=== PATIENT | male | born 1960 | race Caucasian/White ===

== ENCOUNTER 2018-01-18 00:08 | Emergency (ER) | payer MEDICARE, OTHER ==
[~2018-01-18] VITALS: Ht 188 cm; Wt 77.1 kg
[2018-01-18] MEDS ORDERED: Zantac150 MG PO (01:02)
[2018-01-18] MEDS ORDERED: Hair, Skin & N1 EACH PO (01:02)
[2018-01-18 01:55] LABS: BASOPHILS ABSOLUTE AUTO 0.09 K/mm3 (0.00-0.23); BASOPHILS PERCENT AUTO 1 % (0-2); EOSINOPHILS ABSOLUTE AUTO 0.09 K/mm3 (0.00-0.68); EOSINOPHILS PERCENT AUTO 1 % (0-6); Hematocrit 40.7 % (37.0-53.0); Hemoglobin 13.4 g/dL (13.5-17.5); IMMATURE GRAN ABSOLUTE AUTO 0.03 K/mm3 (0.00-0.10); IMMATURE GRAN PERCENT AUTO 0 % (0-1); LYMPHOCYTES PERCENT AUTO 21 % (21-46); MONOCYTES ABSOLUTE AUTO 1.16 K/mm3 (0.16-1.47); MONOCYTES PERCENT AUTO 9 % (4-13); Mean Corpuscular HGB 30.5 pg (26.0-34.0); Mean Corpuscular HGB Conc 32.9 g/dL (31.5-36.5); Mean Corpuscular Volume 93 fL (80-100); Mean Platelet Volume 10.4 fL (9.1-12.4); NEUTROPHILS ABSOLUTE AUTO 8.53 K/mm3 (1.96-9.15); NEUTROPHILS PERCENT AUTO 68 % (41-73); Platelet Count 192 K/mm3 (150-400); RDW Standard Deviation 47.6 fL (35.1-46.3)
[2018-01-18 02:13] LABS: Alanine Aminotransfer (ALT/SGP 35 U/L (12-78); Albumin, Blood 3.4 g/dL (3.4-5.0); Albumin/Globulin Ratio 0.9 (0.8-1.8); Alk Phos 85 U/L (50-136); Anion Gap 6 mmol/L (6-16); Aspartate Aminotrans (AST/SGOT 29 U/L (12-37); Bilirubin, Total 0.1 mg/dL (0.1-1.0); Blood Urea Nitrogen 14 mg/dL (8-24); CO2, Blood 27 mmol/L (21-32); Calcium, Blood 8.4 mg/dL (8.5-10.1); Chloride, Blood 110 mmol/L (98-108); Creatinine, Blood 0.83 mg/dL (0.60-1.20); Globulin, Blood 3.6 g/dL (2.2-4.0); Glomerular Filtration Rate >60 (60-); Glucose, Blood 139 mg/dL (70-99); Potassium, Blood 3.5 mmol/L (3.5-5.5); Sodium, Blood 143 mmol/L (136-145)
[2018-01-18 04:43] LABS: Source, Urine Clean Catch
[2018-01-18 04:56] LABS: Bilirubin, Urine Neg (Neg); Blood, Urine Neg (Neg); Glucose Qualitative, Urine Neg (Neg); Ketones, Urine Neg (Neg); Leukocyte Esterase, Urine Neg (Neg); Nitrite, Urine Neg (Neg); Protein, Urine Neg (Neg); Urobilinogen, Urine NORM (Normal); pH, Urine 6.5 (5.0-8.0)
[2018-01-18 05:02] LABS: Appearance, Urine Clear (Clear); Color, Urine Yellow (P-Yellow)
[2018-01-18] MEDS ORDERED: SUCR1 PO (14:19)
[2018-01-18] MEDS ORDERED: Bentyl10 MG PO (14:19)
[2018-01-18] MEDS ORDERED: ONDA4ODT MM (14:19)
== END 2018-01-18 05:22 | disposition home or self-care (01) ==
LOC: ER 00:08
PROVIDERS: Emergency Medicine
DX: R10.9 Unspecified abdominal pain (principal); Z91.030 Bee allergy status; Z79.899 Other long term (current) drug therapy; F17.200 Nicotine dependence, unspecified, uncomplicated
CPT/HCPCS: 74177; 80053; 81003; 83690; 85025; 96361; 96374; 96375; 99284-25; J2405; J3010; J7030; Q9967

== ENCOUNTER 2023-01-06 14:05 | Inpatient (IN) | payer OTHER ==
[~2023-01-06] VITALS: Ht 190.5 cm; Wt 64.4 kg
[~2023-01-06 14:05] MED LIST: Bentyl10 MG PO; DIVA250ER; GLUC500; Hair, Skin & N1 EACH PO; ONDA4ODT MM; SUCR1 PO; Zantac150 MG PO
[2023-01-06 14:41] LABS: BASOPHILS PERCENT AUTO 1 % (0-2); EOSINOPHILS ABSOLUTE AUTO 0.56 K/mm3 (0.00-0.68); EOSINOPHILS PERCENT AUTO 7 % (0-6); Hematocrit 40.1 % (37.0-53.0); Hemoglobin 13.4 g/dL (13.5-17.5); IMMATURE GRAN ABSOLUTE AUTO 0.02 K/mm3 (0.00-0.10); IMMATURE GRAN PERCENT AUTO 0 % (0-1); LYMPHOCYTES ABSOLUTE AUTO 2.75 K/mm3 (0.84-5.20); LYMPHOCYTES PERCENT AUTO 34 % (21-46); MONOCYTES ABSOLUTE AUTO 0.73 K/mm3 (0.16-1.47); MONOCYTES PERCENT AUTO 9 % (4-13); Mean Corpuscular HGB 29.8 pg (26.0-34.0); Mean Corpuscular HGB Conc 33.4 g/dL (31.5-36.5); Mean Corpuscular Volume 89 fL (80-100); Mean Platelet Volume 9.8 fL (9.1-12.4); NEUTROPHILS PERCENT AUTO 49 % (41-73); Platelet Count 249 K/mm3 (150-400); RDW Coefficient Variation 13.8 % (11.7-14.2); RDW Standard Deviation 45.5 fL (35.1-46.3); White Blood Cell Count 8.16 K/mm3 (4.00-11.30)
[2023-01-06 14:59] LABS: Albumin, Blood 3.1 g/dL (3.4-5.0); Albumin/Globulin Ratio 0.8 (0.8-1.8); Bilirubin, Total 0.2 mg/dL (0.1-1.0); Bun/Creatinine Ratio 16.3 (12.0-20.0); Calcium, Blood 8.4 mg/dL (8.5-10.1); Creatinine, Blood 0.61 mg/dL (0.60-1.20); Globulin, Blood 3.8 g/dL (2.2-4.0); Potassium, Blood 3.9 mmol/L (3.5-5.5); Total Protein, Blood 6.9 g/dL (6.4-8.2)
[2023-01-06] MEDS ORDERED: CARB100ER PO (15:29)
[2023-01-06] MEDS ORDERED: LEVE500 PO (15:29)
[2023-01-06 16:22] LABS: Source, Urine Clean Catch
[2023-01-06 16:32] LABS: Appearance, Urine Clear (Clear); Bilirubin, Urine Neg (Neg); Blood, Urine Neg (Neg); Color, Urine Yellow (P-Yellow); Glucose Qualitative, Urine Neg (Neg); Ketones, Urine Neg (Neg); Leukocyte Esterase, Urine Neg (Neg); Nitrite, Urine Neg (Neg); Protein, Urine Neg (Neg); Urobilinogen, Urine NORM (Normal)
[2023-01-06 22:41] VITALS: BP 117/82
--- NOTE | 2023-01-07 01:16 | NUR ---
ADMIT NOTE MR HEMPHILL WAS ADMITTED FROM THE ER AT 2205HRS. ORIENTATED TO HIMSELF, TO [facility], SAID THAT IT'S JANUARY 2015 AND GAVE A VAGUE RESAON FOR BEING HERE. HE HAD SOME REPETATIVE CONVERSATION BUT WAS ABLE TO ANSWER MOST QUESTIONS WELL AND APPROPRIATELY. HE SAID THAT HE SMOKES TOBACCO AND MJ. HE WAS EDUCATED RE IGNITION SOURCES AND RISK OF INJURY WHEN OXYGEN IN USE. HE DENIED HAVING ANY IGNITION SOURCES AND VERBALISED UNDERSTANDING. RISK REASSESSMENT ON NURSING ROUNDS. PT EDUCATED ON FALL RISK DUE TO FREQUENT FALLS AT HOME. BED ALARM ON AND RATIONALLE EXPLAINED TO PT. HE HAS USED THE CALL LIGHT AND HAS NOT TRIED TO GET UP BY HIMSELF. TELEMETRY PLACED - SR 60, NO CALLS FROM DOCTOR OF NATUROPATHIC MEDICINE. LEFT HAND WEAKNESS. 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 LEFT HAND SWOLLEN. C/O DISCOMFORT TO LEFT THUMB WHICH HE SAID HE SELF MEDICATES WITH MJ AT HOME. PT REPORTS WT LOSS OVER THE PAST 3 MONTHS AND IS UNDERWEIGHT. SCDS ON. IVF INFUSING. BED LOW, CALL LIGHT IN REACH.
--- NOTE | 2023-01-07 03:22 | NUR ---
DR [facility] CALLED FOR CONSULT. INFORMATION TAKEN AND TOLD INFORMATION WILL BE PASSED ON AT 0800HRS.
[2023-01-07 04:37] VITALS: BP 98/73
--- NOTE | 2023-01-07 04:51 | NUR ---
SHIFT SUMMARY PLEASE SEE 0116 ADMIT NOTE. MD HEMPHILL HAS RESTED IN BED AND APPEARED COMFORTABLE OVERNIGHT. VOIDED, CONTINENT OF URINE. NO CALLS FROM RECEPTIONIST SECRETARY. IVF INFUSING. BED LOW, CALL LIGHT IN REACH, BED ALARM ON.
[2023-01-07 06:19] LABS: Hematocrit 40.3 % (37.0-53.0); Hemoglobin 13.6 g/dL (13.5-17.5); Mean Corpuscular HGB 29.9 pg (26.0-34.0); Mean Corpuscular HGB Conc 33.7 g/dL (31.5-36.5); Mean Corpuscular Volume 89 fL (80-100); Mean Platelet Volume 10.2 fL (9.1-12.4); Platelet Count 247 K/mm3 (150-400); RDW Coefficient Variation 13.6 % (11.7-14.2); RDW Standard Deviation 44.1 fL (35.1-46.3); Red Blood Cell Count 4.55 M/mm3 (4.30-5.90); White Blood Cell Count 6.32 K/mm3 (4.00-11.30)
[2023-01-07 06:34] LABS: International Normalized Ratio 0.97; Prothrombin Time Results 10.2 Sec (9.7-11.5)
[2023-01-07 06:53] LABS: Bun/Creatinine Ratio 17.1 (12.0-20.0); Calcium, Blood 8.3 mg/dL (8.5-10.1); Creatinine, Blood 0.64 mg/dL (0.60-1.20); Potassium, Blood 4.8 mmol/L (3.5-5.5)
[2023-01-07 07:04] VITALS: BP 111/68
--- NOTE | 2023-01-07 09:00 | NUR ---
PT PLEASANT COOP A/O X3, KNOWS NAME , AGE, SISTER , NAME. KNOWS AT [facility]. NOT SURE ON YEAR. PRESIDENT. CURRENT EVENTS. FAMILY STATES PAST TBI AND PRESENTS MOSTLY AT BASELINE. H/R REG, NO MURMUR NOTED. PER TELE NSR AT 69. LUNGS CLEAR, RESP EASY, UNLABORED ON R.A. BT X4 LAST BM COUPLE DAYS PER PT. VIODS URINAL OR 1 ASST BATHROOM. NO NEW CONCERNS NOTED. BED IN LOW POSITION, CALL LITE IN REACH, CALLS APPROP
[2023-01-07 15:20] VITALS: BP 120/70
--- NOTE | 2023-01-07 17:24 | NUR ---
PT STATES FEELS SOME BETTER. GOT TO SEE FAMILY TODAY. STATES LEFT ARM STILL OVERLY WEAK AND ONLY GROSS MOVEMENT NOTED. DR ORDERED MORE TESTS. I VERIFIED CANCER DR WAS CALLED THIS AFT. NO NEW COCERNS NOTED. BED IN LOW POSITION, CALL LITE IN REACH, CALLS APPROP
[2023-01-07 19:47] VITALS: BP 112/60
[2023-01-08 04:34] VITALS: BP 104/70
[2023-01-08 07:06] VITALS: BP 103/72
--- NOTE | 2023-01-08 14:57 | NUR ---
ASSUMED CARE AND COMFORT OF THIS PATIENT AT 0715 THIS AM. PATIENT MAKES EYE CONTACT WITH THIS RN DURING AM ROUNDS AND ANSWERS ALL ASSESSMENT QUESTIONS. HE IS AO X 3 TO 4 TODAY ONLY MESSING UP ON YEAR AND DATE. HE TAKES HIS MEDS WHOLE WITH WATER. ANSWERS ALL FIRE SAFETY QUESTIONS. NO CONCERNS NOTED.
[2023-01-08 15:03] VITALS: BP 126/80
--- NOTE | 2023-01-08 18:45 | NUR ---
DAY SHIFT SUMMARY: A&Ox3-4. REQUIRES FREQUENT REDIRECTION. ASSUMPTION OF CARE AT 1500. NO CONCERNS.
[2023-01-08 20:36] VITALS: BP 108/72
[2023-01-09 05:23] VITALS: BP 105/73
[2023-01-09 07:28] VITALS: BP 115/72
[2023-01-09] MEDS ORDERED: DECADRON4 M1 PO (12:06)
--- NOTE | 2023-01-09 14:57 | NUR ---
PT DISCHARGED FROM THE UNIT. IV REMOVED. DISCHARGE INSTRUCTIONS REVIEWED WITH PT AND FAMILY. MEDICATIONS FAXED TO PHARMACY. PT LEFT VIA WHEELCHAIR. FAMILY TO DRIVE HOME
== END 2023-01-09 15:01 | disposition home or self-care (01) | DRG 54 ==
LOC: ER 14:05 → MEDS 21:35 → ENPENDDIS 01-09 10:42 → MEDS 01-09 15:01
PROVIDERS: Nurse Practitioner Acute Care; Physician Assistant; Student in an Organized Health Care Education/Training Program; ADMIT Internal Medicine
DX: C79.31 Secondary malignant neoplasm of brain (principal); E43 Unspecified severe protein-calorie malnutrition; R64 Cachexia; C34.12 Malignant neoplasm of upper lobe, left bronchus or lung; G40.909 Epilepsy, unspecified, not intractable, without status epilepticus; R97.1 Elevated cancer antigen 125 [CA 125]; R73.09 Other abnormal glucose; F17.210 Nicotine dependence, cigarettes, uncomplicated; Z98.2 Presence of cerebrospinal fluid drainage device; Z91.038 Other insect allergy status; Z79.899 Other long term (current) drug therapy; Z98.890 Other specified postprocedural states; Z87.820 Personal history of traumatic brain injury; Z68.22 Body mass index [BMI] 22.0-22.9, adult
CPT/HCPCS: 36415; 70450; 70460; 71046; 71260; 74178; 80048; 80053; 81003; 84153; 84702; 85025; 85027; 85610; 86301; 86304; 93005; 93010; 96374-59; 99285-25; A9270; J1100; J7030; Q9967

== ENCOUNTER → 2023-01-11 | Outpatient (CLI) | payer OTHER ==
[~2023-01-11] MED LIST changes: +CARB100ER PO; +DECADRON4 M1 PO; +LEVE500 PO
[2023-01-11 12:39] LABS: BASOPHILS ABSOLUTE AUTO 0.06 K/mm3 (0.00-0.23); BASOPHILS PERCENT AUTO 1 % (0-2); EOSINOPHILS ABSOLUTE AUTO 0.03 K/mm3 (0.00-0.68); EOSINOPHILS PERCENT AUTO 0 % (0-6); Hematocrit 41.6 % (37.0-53.0); Hemoglobin 13.8 g/dL (13.5-17.5); IMMATURE GRAN ABSOLUTE AUTO 0.07 K/mm3 (0.00-0.10); IMMATURE GRAN PERCENT AUTO 1 % (0-1); LYMPHOCYTES ABSOLUTE AUTO 0.65 K/mm3 (0.84-5.20); LYMPHOCYTES PERCENT AUTO 6 % (21-46); MONOCYTES ABSOLUTE AUTO 1.57 K/mm3 (0.16-1.47); MONOCYTES PERCENT AUTO 14 % (4-13); Mean Corpuscular HGB 29.5 pg (26.0-34.0); Mean Corpuscular HGB Conc 33.2 g/dL (31.5-36.5); Mean Corpuscular Volume 89 fL (80-100); Mean Platelet Volume 10.6 fL (9.1-12.4); NEUTROPHILS ABSOLUTE AUTO 9.24 K/mm3 (1.96-9.15); NEUTROPHILS PERCENT AUTO 80 % (41-73); Platelet Count 224 K/mm3 (150-400); RDW Coefficient Variation 14.2 % (11.7-14.2); RDW Standard Deviation 46.1 fL (35.1-46.3); Red Blood Cell Count 4.68 M/mm3 (4.30-5.90); White Blood Cell Count 11.62 K/mm3 (4.00-11.30)
[2023-01-11 12:58] LABS: Albumin, Blood 3.5 g/dL (3.4-5.0); Albumin/Globulin Ratio 0.8 (0.8-1.8); Bilirubin, Total 0.2 mg/dL (0.1-1.0); Bun/Creatinine Ratio 18.2 (12.0-20.0); Calcium, Blood 9.2 mg/dL (8.5-10.1); Creatinine, Blood 0.61 mg/dL (0.60-1.20); Globulin, Blood 4.6 g/dL (2.2-4.0); Potassium, Blood 4.3 mmol/L (3.5-5.5); Total Protein, Blood 8.1 g/dL (6.4-8.2)
== END | disposition home or self-care (01) ==
LOC: LAB 11:19 → LAB SHORT 11:19
PROVIDERS: Registered Nurse Oncology
DX: C34.10 Malignant neoplasm of upper lobe, unspecified bronchus or lung (principal); C79.31 Secondary malignant neoplasm of brain; R91.8 Other nonspecific abnormal finding of lung field
CPT/HCPCS: 80053; 82378; 83615; 85025